=== PATIENT | female | born 1960 | race African-American/Black ===

== ENCOUNTER 2019-08-11 04:20 | Inpatient (IN) | payer OTHER, MEDICAID ==
[~2019-08-11] VITALS: Ht 177.8 cm; Wt 91.6 kg
[~2019-08-11 04:20] MED LIST: AMLO10TA80; ASPI-1079; ATEN50TA; BENA40TA9; GLIP5TAB12
[2019-08-11] MEDS ORDERED: SODIUM CHLORIDE 0.9% 1,000 ML IV ONE (05:30)
[2019-08-11 06:12] LABS: BASOPHILS % 0.8 % (0.0-2.0); EOSINOPHILS % 0.3 % (0.0-5.0); HEMATOCRIT. 31.8 % (36.0-48.0); HEMOGLOBIN. 10.6 g/dL (12.0-16.0); LYMPHOCYTES % 9.5 % (20.0-50.0); MEAN CORPUSCULAR HEMOGLOBIN 30.8 pg (28.0-32.0); MEAN CORPUSCULAR VOLUME 92.7 fL (81.0-99.0); MEAN PLATELET VOLUME 7.7 fl (7.4-10.4); MONOCYTES % 5.7 % (2.0-8.0); NEUTROPHILS % 83.7 % (40.0-76.0); PLATELET 169 x1000/uL (130-400); RED BLOOD CELL COUNT 3.43 mill/uL (4.2-5.4); RED CELL DISTRIBUTION WIDTH 19.5 % (11.6-14.6)
[2019-08-11 06:25] LABS: CHLORIDE 96 mEq/L (98-107)
[2019-08-11] MEDS ORDERED: POTASSIUM CHLORIDE 20MEQ TABLET SR PO ONE (07:00)
[2019-08-11] MEDS ORDERED: POTASSIUM CHLORIDE INJ 40 MEQ in DEXT 5% WATER 250 ML IV ONE (07:00)
[2019-08-11] MEDS ORDERED: ACETAMINOPHEN 325MG TABLET PO PRN (12:45)
[2019-08-11] MEDS ORDERED: ENOXAPARIN 40MG/0.4ML SYR SUBCUT SCH (12:45)
[2019-08-11] MEDS ORDERED: ONDANSETRON HCL 4MG/2ML INJ IV PRN (12:45)
[2019-08-11] MEDS ORDERED: DOCUSATE SODIUM 100MG CAPSULE PO PRN (12:45)
[2019-08-11] MEDS ORDERED: GUAIFENESIN 200MG/10ML SUGAR FREE UDC PO PRN (12:45)
[2019-08-11] MEDS ORDERED: MAGNESIUM/ALUMINUM HYDROXIDE/SIMETHICONE 30ML UDC PO PRN (12:45)
[2019-08-11] MEDS ORDERED: HYDROCODONE/ACETAMINOPHEN 5/325MG TABLET PO PRN (12:45)
[2019-08-11] MEDS ORDERED: CLONIDINE 0.1MG TABLET PO PRN (12:45)
[2019-08-11 18:45] VITALS: BP 156/70
[2019-08-11 20:00] VITALS: BP 153/80
[2019-08-11] MEDS ORDERED: ENOXAPARIN 30MG/0.3ML SYR SUBCUT SCH (20:00)
[2019-08-11] MEDS ORDERED: KCL 10MEQ/50ML PREMIX 50 ML IV NR (21:00)
[2019-08-11] MEDS: INSULIN LISPRO 100 UNITS/ML SUBCUT SCH (21:00)
[2019-08-11] MEDS: SODIUM CHLORIDE 0.9% 1,000 ML IV SCH (21:50)
[2019-08-11] MEDS: BLOOD SUGAR DIAGNOSTIC STRIP TEST SCH (21:51)
[2019-08-12] VITALS: BP 163/77
[2019-08-12 04:00] VITALS: BP 134/78
[2019-08-12] MEDS: SODIUM CHLORIDE 0.9% 1,000 ML IV SCH (04:16)
[2019-08-12 07:39] LABS: BASOPHILS % 1.4 % (0.0-2.0); EOSINOPHILS % 1.5 % (0.0-5.0); HEMOGLOBIN. 8.8 g/dL (12.0-16.0); LYMPHOCYTES % 23.2 % (20.0-50.0); MEAN PLATELET VOLUME 7.7 fl (7.4-10.4); MONOCYTES % 10.3 % (2.0-8.0); NEUTROPHILS % 63.6 % (40.0-76.0); PLATELET 163 x1000/uL (130-400); RED BLOOD CELL COUNT 2.83 mill/uL (4.2-5.4); RED CELL DISTRIBUTION WIDTH 19.3 % (11.6-14.6)
[2019-08-12] MEDS: BLOOD SUGAR DIAGNOSTIC STRIP TEST SCH ×2 (07:40→12:40)
[2019-08-12 07:53] LABS: CHLORIDE 102 mEq/L (98-107)
[2019-08-12 08:00] VITALS: BP 149/72
[2019-08-12 08:07] LABS: LDL CHOLESTEROL 71 mg/dL (5-100)
[2019-08-12 08:09] LABS: HDL CHOLESTEROL 51 mg/dL (40-59)
[2019-08-12] MEDS: INSULIN LISPRO 100 UNITS/ML SUBCUT SCH ×2 (08:10→12:59)
[2019-08-12] MEDS: DEXTROSE 50% WATER 50ML SYRINGE IV PRN ×2 (08:36→13:04)
[2019-08-12] MEDS ORDERED: ASPIRIN 81MG EC TABLET PO SCH (09:00)
[2019-08-12 12:00] VITALS: BP 155/74
[2019-08-12 12:50] VITALS: BP 153/70
[2019-08-12] MEDS ORDERED: MEGESTROL ACETATE 400 MG/10 ML UDC PO SCH (13:00)
[2019-08-12] MEDS ORDERED: POTASSIUM CHLORIDE 20MEQ TABLET SR PO SCH (13:00)
[2019-08-12 16:00] VITALS: BP 153/73
[2019-08-12] MEDS ORDERED: ENOXAPARIN 40MG/0.4ML SYR SUBCUT SCH (21:00)
== END 2019-08-12 17:00 | disposition home or self-care (01) | DRG 683 ==
LOC: ER 04:20 → 7WST 07:47 → EDBEDREQTM 07:55 → ENRESERV 16:42
PROVIDERS: ADMIT Hospitalist; ATTEND Hospitalist
DX: N17.9 Acute kidney failure, unspecified (principal); C56.9 Malignant neoplasm of unspecified ovary; R55 Syncope and collapse; M17.12 Unilateral primary osteoarthritis, left knee; E11.9 Type 2 diabetes mellitus without complications; I10 Essential (primary) hypertension; E87.6 Hypokalemia; Z79.82 Long term (current) use of aspirin; Z79.899 Other long term (current) drug therapy; Z79.84 Long term (current) use of oral hypoglycemic drugs; Z92.21 Personal history of antineoplastic chemotherapy
CPT/HCPCS: 36415; 71045; 73560; 80061; 82962; 83036; 83735; 84484; 87493; 93005; 93306; 93970; 99285; A6261; J1650; J3480; J7030; J7060